=== PATIENT | female | born 1970 | race African-American/Black ===

== ENCOUNTER → 2016-07-10 | Outpatient (CLI) | payer OTHER ==
[~2016-07-10] MED LIST: DARVOCET-N 1001 TAB PO; JANUVIA PO; LANTUS100 U/ML SQ; LANTUS100 U/ML SUBQ; SIMVASTATIN40 MG PO; ZESTRIL2.5 MG PO
--- NOTE | ~2016-07-10 | MY11 ---
[facility] A Service of [facility] RADIOLOGY TEXT RESULTS PATIENT: ALIRIO ALFONSO LOCATION: [facility] : 70 UNIT #: [id number] AGE: [address]: Ginna Tsang MD SEX: F ORDER DR: [id number] [facility] [address] [place], [place] [address] [id number] O MR#: [id number] Acc #: [id number] NAME: ALIRIO ALFONSO : 1970 SEX: F STUDY DATE/TIME: 07/10/2016 11:11 UNIT: [facility] ROOM: STUDY DESCRIPTION: MY Mammogram Screening Dig Robert Attending Physician: Ginna Tsang M.D. Referring Physician: Ginna Tsang M.D. Ordering Physician: Ginna Tsang M.D. Primary Care Physician: Ginna Tsang M.D. MEDICAL IMAGING REPORT This report is preliminary unless electronic signature is present EXAM Digital screening mammogram 07/10/2016 HISTORY 46-year-old woman, no risk elevation. Keloid marked left breast. Annual screen. COMPARISON STUDIES 07/04/2011, 06/17/2013, 07/07/2014, 07/09/2015 FINDINGS Digital imaging of each breast was completed utilizing screening protocol. Review includes FDA-approved CAD device. Breast parenchyma is predominantly fatty replaced. I see no suspicious mass. There are no interval occurring microcalcifications and no architectural deformity. IMPRESSION Negative mammogram. Annual screening recommended. BIRADS 1 Patients over the age of 40 are entered into a reminder system with target due date for the next mammogram. A result letter will also be sent to the patient. BIRADS: 1 - Negative Dictated by... Christian Wagner M.D. THIS IS AN ELECTRONICALLY VERIFIED REPORT hCristian Wagner M.D. at 07/11/2016 8:03 AM DEANNA/alvin [facility] A Service of [facility] RADIOLOGY TEXT RESULTS PATIENT: ALIRIO ALFONSO LOCATION: [facility] : 70 UNIT #: [id number] AGE: [address]: Ginna Tsang MD SEX: F ORDER DR: TD: 07/10/2016 16:22 JOB #: [id number] MEDICAL IMAGING REPORT COPY
== END | disposition home or self-care (01) ==
LOC: CWCC 10:54
DX: Z12.31 Encounter for screening mammogram for malignant neoplasm of breast (principal); L91.0 Hypertrophic scar
CPT/HCPCS: G0202